=== PATIENT | male | born 1995 | race American Indian/Alaskan Native ===

== ENCOUNTER 2019-03-12 11:19 | Emergency (ER) | payer SELFPAY ==
--- NOTE | 2019-03-12 11:39 | Event Note ---
ED Screening Note Date of service: 03/12/19 Time: 11:36 ED Screening Note: This initial assessment/diagnostic orders/clinical plan/treatment(s) is/are subject to change based on patients health status, clinical progression and re- assessment by fellow clinical providers in the ED. Further treatment and workup at subsequent clinical providers discretion. Patient/guardian urged not to elope from the ED as their condition may be serious if not clinically assessed and managed. Initial orders include: MENTAL HEALTH CONSULT CBC, CMP UDS
--- NOTE | 2019-03-12 12:55 | Emergency Department Report ---
<SAYDA MELENDEZ - Last Filed: 03/12/19 18:36> ED Psych HPI - General Chief Complaint: Psych Stated Complaint: EFREN HANSON Time Seen by Provider: 03/12/19 11:35 Source: patient Mode of arrival: Ambulatory - History of Present Illness Initial Comments: Patient is a 23-year-old male who comes to the ER complaining of suicidal thoughts. He has no plan. He has attempted suicide in the past by jumping in traffic or hanging himself.. Patient states that he has schizophrenia, bipolar, ADHD and depression. He reports being off meds for 3 months. He finds himself recently been more emotional. He hears loud screeching sounds. He denies co mmand hallucinations. He also endorses visual hallucinations but will not specify what he sees to me. Patient states that he lives with his father. He denies stress. He does not work. He states that he is not taking any home medications. He can not tell me what meds he is suppose to be on. Denies HIV or other medical illness. Endorses only his mental health disease of ADHD, MD, bipolar, Schizophrenia. He denied drug abuse to me but reported methamphetamine use to the staff. Patient denies any surgeries. Patient states that he does have a primary care doctor but he cannot tell me who it is. -: Gradual History of same: Yes Quality: intermittent Improves With: medication Context: not taking psychiatric Associated Symptoms: denies other symptoms Treatments Prior to Arrival: placed on mental he If Self Harm: admits thoughts of - Related Data Allergies Allergy/AdvReac Type Severity Reaction Status Date / Time No Known Allergies Allergy Unverified 03/12/19 11:23 ED Review of Systems Comment: All other systems reviewed and negative ED Past Medical Hx - Past Medical History Previous Medical History?: Yes Hx Psychiatric Treatment: Yes (Bipolar/Schizophrenia) Additional medical history: ADHD - Surgical History Past Surgical History?: No - Family History Family history: no significant - Social History Smoking Status: Current Some Day Smoker Substance Use Type: Methamphetamines, Other ED Physical Exam - General Limitations: No Limitations General appearance: alert, in no apparent distress - Head Head exam: Present: atraumatic, normocephalic - Eye Eye exam: Present: normal appearance - ENT ENT exam: Present: mucous membranes moist - Neck Neck exam: Present: normal inspection - Respiratory Respiratory exam: Present: normal lung sounds bilaterally. Absent: respiratory distress - Cardiovascular Cardiovascular Exam: Present: regular rate, normal rhythm. Absent: systolic murmur, diastolic murmur, rubs, gallop - GI/Abdominal GI/Abdominal exam: Present: soft, normal bowel sounds - Rectal Rectal exam: Present: deferred - Extremities Exam Extremities exam: Present: normal inspection - Back Exam Back exam: Present: normal inspection - Neurological Exam Neurological exam: Present: alert, oriented X3 - Psychiatric Psychiatric exam: Present: suicidal ideation - Skin Skin exam: Present: warm, dry, intact, normal color. Absent: rash ED Medical Decision Making - Lab Data Result diagrams: 03/12/19 13:38 03/12/19 13:38 - Medical Decision Making Labs 03/12/19 03/12/19 03/12/19 12:56 12:56 13:38 WBC 7.8 RBC 4.72 Hgb 14.1 Hct 42.5 MCV 90 MCH 30 MCHC 33 RDW 13.5 Plt Count 294 Lymph % (Auto) 41.6 H [place] % (Auto) 10.3 H Eos % (Auto) 1.4 Baso % (Auto) 1.0 Lymph # 3.2 [place] # 0.8 Eos # 0.1 Baso # 0.1 Seg Neutrophils % 45.7 Seg Neutrophils # 3.6 Sodium Potassium Chloride Carbon Dioxide Anion Gap BUN Creatinine Estimated GFR BUN/Creatinine Ratio Glucose Calcium Total Bilirubin AST ALT Alkaline Phosphatase Total Protein Albumin Albumin/Globulin Ratio Urine Color Yellow Urine Turbidity Clear Urine pH 5.0 Ur Specific [place] 1.034 H Urine Protein <15 mg/dl Urine Glucose (UA) Neg Urine Ketones 20 Urine Blood Neg Urine Nitrite Neg Urine Bilirubin Neg Urine Urobilinogen 2.0 Ur Leukocyte Esterase Neg Urine WBC (Auto) 1.0 Urine RBC (Auto) 1.0 U Epithel Cells (Auto) < 1.0 Urine Mucus 3+ Salicylates Urine Opiates Screen Presumptive negative Urine Methadone Screen Presumptive negative Acetaminophen Ur Barbiturates Screen Presumptive negative Ur Phencyclidine Scrn Presumptive negative Ur Amphetamines Screen Presumptive positive U Benzodiazepines Scrn Presumptive negative Urine Cocaine Screen Presumptive positive U Marijuana (THC) Screen Presumptive negative Drugs of Abuse Note Disclamer Plasma/Serum Alcohol 03/12/19 03/12/19 03/12/19 13:38 13:38 13:38 WBC RBC Hgb Hct MCV MCH MCHC RDW Plt Count Lymph % (Auto) [place] % (Auto) Eos % (Auto) Baso % (Auto) Lymph # [place] # Eos # Baso # Seg Neutrophils % Seg Neutrophils # Sodium 138 Potassium 4.0 Chloride 99.2 Carbon Dioxide 22 Anion Gap 21 BUN 20 Creatinine 0.9 Estimated GFR > 60 BUN/Creatinine Ratio 22 Glucose 119 H Calcium 9.3 Total Bilirubin 1.00 AST 22 ALT 17 Alkaline Phosphatase 95 Total Protein 7.2 Albumin 4.1 Albumin/Globulin Ratio 1.3 Urine Color Urine Turbidity Urine pH Ur Specific [place] Urine Protein Urine Glucose (UA) Urine Ketones Urine Blood Urine Nitrite Urine Bilirubin Urine Urobilinogen Ur Leukocyte Esterase Urine WBC (Auto) Urine RBC (Auto) U Epithel Cells (Auto) Urine Mucus Salicylates < 0.3 L Urine Opiates Screen Urine Methadone Screen Acetaminophen < 5.0 L Ur Barbiturates Screen Ur Phencyclidine Scrn Ur Amphetamines Screen U Benzodiazepines Scrn Urine Cocaine Screen U Marijuana (THC) Screen Drugs of Abuse Note Plasma/Serum Alcohol 03/12/19 13:38 WBC RBC Hgb Hct MCV MCH MCHC RDW Plt Count Lymph % (Auto) [place] % (Auto) Eos % (Auto) Baso % (Auto) Lymph # [place] # Eos # Baso # Seg Neutrophils % Seg Neutrophils # Sodium Potassium Chloride Carbon Dioxide Anion Gap BUN Creatinine Estimated GFR BUN/Creatinine Ratio Glucose Calcium Total Bilirubin AST ALT Alkaline Phosphatase Total Protein Albumin Albumin/Globulin Ratio Urine Color Urine Turbidity Urine pH Ur Specific [place] Urine Protein Urine Glucose (UA) Urine Ketones Urine Blood Urine Nitrite Urine Bilirubin Urine Urobilinogen Ur Leukocyte Esterase Urine WBC (Auto) Urine RBC (Auto) U Epithel Cells (Auto) Urine Mucus Salicylates Urine Opiates Screen Urine Methadone Screen Acetaminophen Ur Barbiturates Screen Ur Phencyclidine Scrn Ur Amphetamines Screen U Benzodiazepines Scrn Urine Cocaine Screen U Marijuana (THC) Screen Drugs of Abuse Note Plasma/Serum Alcohol < 0.01 Vital Signs 03/12/19 03/12/19 11:35 12:51 Temperature 98.5 F Pulse Rate 81 Respiratory 20 16 Rate Blood Pressure 135/80 O2 Sat by Pulse 97 Oximetry PT COOPERATIVE LABS NOTED DISPO PER [facility] - Differential Diagnosis SI ED Disposition Clinical Impression: Suicidal ideation Disposition: [id number]/TX-[id number] PSY HOSP/PSY UNIT Is pt being admited?: No Does the pt Need Aspirin: No Condition: Stable Referrals: PRIMARY CARE, [Primary Care Provider] - 3-5 Days Time of Disposition: 12:55 <JEB MOROCHO - Last Filed: 03/13/19 14:02> ED Review of Systems ROS: Stated complaint: PYSCH EVAL Other details as noted in HPI ED Course Vital Signs 03/12/19 03/12/19 03/12/19 11:35 12:51 20:18 Temperature 98.5 F 98.7 F Pulse Rate 81 83 Respiratory 20 16 18 Rate Blood Pressure 135/80 Blood Pressure 128/65 [Right] O2 Sat by Pulse 97 97 Oximetry 03/13/19 03/13/19 02:05 07:00 Temperature 97.4 F L 98.5 F Pulse Rate 68 78 Respiratory 20 18 Rate Blood Pressure Blood Pressure 103/56 112/46 [Right] O2 Sat by Pulse 100 100 Oximetry - Reevaluation(s) Reevaluation #1: 03/13/19 14:01 Patient is medically cleared has been accepted at [facility] at this time. ED Medical Decision Making - Lab Data Result diagrams: 03/12/19 13:38 03/12/19 13:38 Critical care attestation.: If time is entered above; I have spent that time in minutes in the direct care of this critically ill patient, excluding procedure time. ED Disposition Is pt being admited?: No Does the pt Need Aspirin: No
[2019-03-12 13:24] LABS: Bilirubin,Urine NEG (Negative); Blood,Urine NEG (Negative); Color,Urine Yellow (Yellow); Mucus,Urine 3+ /HPF; Protein,Urine <15 mg/dL mg/dL (Negative)
[2019-03-12 13:51] LABS: Benzodiazepines Screen,Urine PRESUMPTIVE NEGATIVE; Cannabinoid Screen,Urine PRESUMPTIVE NEGATIVE; Methadone Screen,Urine PRESUMPTIVE NEGATIVE; Opiate Screen,Urine PRESUMPTIVE NEGATIVE
[2019-03-12 14:05] LABS: Amphetamine Screen,Urine PRESUMPTIVE POSITIVE; Cocaine Screen,Urine PRESUMPTIVE POSITIVE
[2019-03-12 14:07] LABS: Basophils # (Auto) 0.1 K/mm3 (0.0-0.1); Eosinophils # (Auto) 0.1 K/mm3 (0.0-0.4); Eosinophils % (Auto) 1.4 % (0.0-4.3); Hematocrit 42.5 % (35.5-45.6); Hemoglobin 14.1 gm/dl (11.8-15.2); Lymphocytes # (Auto) 3.2 K/mm3 (1.2-5.4); Lymphocytes % (Auto) 41.6 % (13.4-35.0); Mean Corpuscular HGB Conc 33 % (32-34); Mean Corpuscular Volume 90 fl (84-94); Monocytes # (Auto) 0.8 K/mm3 (0.0-0.8); Monocytes % (Auto) 10.3 % (0.0-7.3); Platelet Count 294 K/mm3 (140-440); Red Blood Count 4.72 M/mm3 (3.65-5.03); Red Cell Distribution Width 13.5 % (13.2-15.2)
[2019-03-12 14:32] LABS: Alanine Aminotransferase 17 units/L (7-56); Albumin 4.1 g/dL (3.9-5); BUN/Creatinine Ratio 22; Blood Urea Nitrogen 20 mg/dL (9-20); Calcium 9.3 mg/dL (8.4-10.2); Hemolysis Index 9
[2019-03-13 14:14] VITALS: BP 120/62
== END 2019-03-13 19:54 ==
LOC: EEVIPCON 11:19 → ED 11:19
DX: F31.9 Bipolar disorder, unspecified (principal); F20.9 Schizophrenia, unspecified; F90.9 Attention-deficit hyperactivity disorder, unspecified type; F17.200 Nicotine dependence, unspecified, uncomplicated
CPT/HCPCS: 36415; 80053; 80307; 80320; 81001; 85025; G0480